=== PATIENT | female | born 1940 | race Caucasian/White ===

== ENCOUNTER → 2021-11-15 10:20 | Outpatient (BNVA) | payer MEDICARE, BC, SELFPAY | PROVIDERS: PCP Family Medicine; Visit Provider Nurse Practitioner Family | DX: G20 Parkinson's disease (principal); G47.00 Insomnia, unspecified; Z79.899 Other long term (current) drug therapy | CPT/HCPCS: 99212 ==

== ENCOUNTER → 2022-02-14 10:50 | Outpatient (BNVA) | payer MEDICARE, BC, SELFPAY | PROVIDERS: PCP Family Medicine; Visit Provider Nurse Practitioner Family | DX: G20 Parkinson's disease (principal); R29.818 Other symptoms and signs involving the nervous system | CPT/HCPCS: 99212 ==

== ENCOUNTER 2022-04-22 11:00 | Outpatient (RCR) | payer MEDICARE, SELFPAY ==
[2022-03-18 09:52] VITALS: BP 124/82; PULSE 72; O2SAT 100
--- NOTE | 2022-03-18 13:35 | MHC.PT.EP ---
[facility] [place] Office [place] [facility] [place] [facility] [address] Ney De La Paz [address] [phone] F: [phone] F: [phone] F: [phone] F: [phone] Physical Therapy Plan of Care Date of Evaluation: Date of Surgery: Diagnosis: This is a 81 yo female with a script for difficulty balancing, Parkinson's disease. Assessment: This is a 81 yo female with a script for difficulty balancing, Parkinson's disease. Patient reports that in Aug 2021 she was hospitalized for c-diff and feels like she has lost a lot of energy. After hospitalization, she had home PT for about 2-3 weeks following this. She was given an HEP from the home PT but has not been faithful. She does attempt to take small walks and does chair yoga 1x/wk at the local library on Fridays. This patient was also dx'd with Parkinson's 3-4 years ago. She denies recent falls but feels like her balance is off and she has been close to falling a few times. She reports difficulty with getting out of a chair, walking and stairs. Assessment reveals pain that varies and is described as general body achiness thus ranges up to 2-6/10. She demos decreased ROM, decreased strength (L knee is limited from previous knee arthroscopy), impaired gait pattern and balance as evidenced by tests, impaired joint mobility (L knee) as well as gross functional decline with functional movements, walking and transfers. She is a good candidate for skilled PT 2x/wk for 4 wks. Frequency and Duration: The patient will be seen 2x/wk for 4wks Short Term Goals: I in HEP, able to demo LSVT by self safely Demo sit <> stand safely with and without hands from various heights and surfaces Public Policy Coordinator Goals: Improve balance scores by 25% Improve strength of BLE to least 4+/5 Improve 6MWT by at least 50 ft Treatment Plan: Modalities to reduce pain, spasms and effusion. Manual therapy to restore motion and function. Therapeutic exercise to improve strength and flexibility. Neuromuscular re-education for posture and balance. Therapeutic activities to return to functional activities of daily living. Electronically signed by: Fay Skinner, PT Please sign and return to therapist. Thank you for your referral.
--- NOTE | 2022-04-24 08:37 | MHC.PT.DC ---
[facility] [place] Office [place] Office [place] Office [address] Ney De La Paz [address] [phone] F: [phone] F: [phone] F: [phone] F: [phone] Physical Therapy Discharge Report Diagnosis: This is a 81 yo female with a script for difficulty balancing, Parkinson's disease. Date of Surgery: Date of Evaluation: 03/18/22 Date of Discharge: 04/24/22 Treatments to Date: 9 Cancellations to Date: 0 No Shows to Date: 0 Discharge Status: Achieved Goals Improved Function Independent with HEP Discharge Summary: At the last tx session, reviewed HEP BIG program with teach back method. Pt performed her whole program though improved independence still requires some cues but this may be due memory deficits. Pt reports I with most other exercises and shows others what she has been doing. HEP contains LE strengthening as well as parkinson's disease specific program. At this time she is leaving for vacation for 4 wks and we are DCing to HEP. Patient was educated that if she needs to return in the future for refresher of PT POC, to call our office. DC to HEP Electronically signed by: Fay Skinner PT Please sign and return to therapist. Thank you for your referral.
== END 2022-04-24 08:36 | disposition home or self-care (01) ==
LOC: HO.PTCHIC 11:00
PROVIDERS: PCP Family Medicine; Visit Provider Nurse Practitioner Family
DX: R29.818 Other symptoms and signs involving the nervous system (principal); G20 Parkinson's disease
CPT/HCPCS: 97110; 97112; 97162